=== PATIENT | female | born 1990 | race Caucasian/White ===

== ENCOUNTER 2016-09-18 02:00 | Emergency (ER) | payer MEDICAID ==
[~2016-09-18] VITALS: Ht 152.4 cm; Wt 90.7 kg
[2016-09-18] MEDS ORDERED: GABAPENTIN 400400 MG PO (02:24)
[2016-09-18] MEDS ORDERED: MOBIC7.5 MG PO (02:25)
[2016-09-18] MEDS ORDERED: KLONOPIN1 MG PO (02:26)
[2016-09-18 02:39] LABS: HEMOGLOBIN 12.9 g/dL (12.2-16.2); LYMPH # 3.6 K/mm3 (0.7-4.5); LYMPH % 26.6 % (10-50.0)
[2016-09-18 03:08] LABS: BUN 5 mg/dL (7-18)
[2016-09-18 03:13] LABS: GFR (ESTIMATED) 121 ML/MIN (59-)
--- NOTE | 2016-09-18 03:16 | Emergency Room Report ---
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 N Clinical Suspician of Infection? N Mental Status: 1 - Regular (Normal Baseline) Sepsis Risk:Possible Sepsis Risk Have you (or family members/close friends) recently traveled outside the [place]? N If Yes, where/when: Have you had exposure to infectious disease within the past month? N TB? Other? Specify: Source patient, RN notes reviewed, family, RN/MD Exam Limitations no limitations Comment This is a 25-year-old female patient arriving to the emergency room together with her and young child, complaining with palpitations and anxiety. Patient just had the heart attack, prior to arrival, while at home. She clearly describes anxiety, fear, hyperventilation, palpitations, and finally chest pain. Patient has had previous similar episodes in the past, multiple occasions. She is currently on Klonopin for this condition, prescribed by her PCP. ALLERGIES Coded Allergies: Penicillins (09/18/16) amoxicillin (09/18/16) guaifenesin (From MUCINEX) (09/18/16) Home Medications Reported Medications GABAPENTIN (Gabapentin) 300 MG PO TID Meloxicam (Mobic 7.5MG) 7.5 MG PO DAILY Clonazepam (Klonopin 1MG) 1 MG PO TID History Medical History General CAD? No Angina: No [place]: No Hypertension? No Hyperlipidemia? No CHF? No DVT? No PE? No COPD? No Asthma? No Anemia? No GERD? No Gastric ulcers? No GI Bleed? No Hernia? No Thyroid Problems? No Hypothyroidism? No CVA? No Seizures? No Diabetes? No Renal Insuffiency? No End Stage Renal Disease? No UTI? No Stones? No BPH? No GB Disease: No Nephritic Syndrome? No Asplenia? No Hepatitis? No Sickle Cell Disease? No Arthritis? No Migraines? Yes Cataracts? No Glaucoma? No MRSA? No HIV? No TB? No Anxiety? Yes Depression? Yes Cancer? No More? 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 Social History Smoking Hx Smoker: Current Every Day Smoker Tobacco: Yes Type Cigarettes Packs/day < 1 Pack Alcohol Alcohol: No Review of Systems All Other Systems Reviewed and Negative Cardiovascular palpitations Psychiatric/Neurological anxiety Physical Exam Vital Signs Vital Signs Date Time Temp Pulse Resp B/P Pulse O2 O2 Flow FiO2 Ox Delivery Rate 09/18 0324 97.9 62 16 119/77 98 2 09/18 0315 89 20 119/77 97 2 09/18 0241 112 16 142/93 97 09/18 0235 18 09/18 0211 98.1 92 20 145/107 100 General Appearance normal appearance, WD/WN, mild distress, anxious Neck normal inspection, non-tender, supple, full range of motion Respiratory Status Yes: trachea midline, chest symmetrical, non tender chest. No: respiratory distress. Lung Sounds bilateral: normal breath sounds, lungs clear. 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 No Comment Upon evaluation patient appears medically stable, clinically improving. Advised patient to follow-up with her PCP, at her earliest convenience, if any residual or relapsing symptoms. DDX: Acute myocardial infarction, palpitations, anxiety, pulmonary embolism, hyperthyroidism, pneumothorax, pneumonia, etc. Results/Orders Laboratory Tests 09/18/16 0235: B-Natriuretic Peptide 16 09/18/16234: Sodium 138, Potassium 3.4 L, Chloride 100, Carbon Dioxide 28, BUN 5 L, Creatinine 0.6, Estimated Creat Clear 203 H, Estimated GFR (MDRD) 121, Glucose 73 L, Calcium 8.8, Total Bilirubin 0.3, AST 12 L, ALT 32, Alkaline Phosphatase 78, Creatine Kinase 114, CK-MB (CK-2) Rel Index 0.4, CK and CKMB Interp 0.5, Troponin I < 0.02, Total Protein 7.8, Albumin 3.4, Globulin 4.4 H, Albumin/ Globulin Ratio 0.8 L, D-Dimer 115, WBC 13.6 H, RBC 4.85, Hgb 12.9, Hct 38.9, MCV 80.2 L, RDW 14.4, Plt Count 385, MPV 5.5 L, Gran % 67.4, Gran # 9.1 H, Lymphocytes % 26.6, Monocytes % 4.4, Eosinophils % 1.3, Basophils % 0.4, Lymphocytes # 3.6, Monocytes # 0.6, Eosinophils # 0.2, Basophils # 0.1, PUBS MCHC 33.1, MCH 26.6 L Current Medication Orders Sig/Thomas Start time Last Medication Dose Route Stop Time Status Admin Lorazepam 0 .STK-MED ONE 09/18 232 DC .ROUTE Lorazepam 1 MG ONCE ONE 09/18 214 DC 09/18 IV 09/18 215 023 Orders Procedure Date/time Status ELECTROCARDIOGRAM REQUEST 09/18 206 Active D-DIMER 09/18 206 Complete CBC WITH AUTO DIFF 09/18 206 Complete CARDIAC ENZYMES 09/18 206 Complete CHEM 12 PROFILE 09/18 206 Complete BRAIN NATRIURETIC PEPTIDE 09/18 206 Complete 12 LEAD EKG-WILLIAM (INITIAL) 09/18 UNK Active 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 of ischemic chgs, no ectopy, normal QRS, no EKG for comparison, non-spec. ST/Twave chgs, ST elevation, ST depression, LBBB, RBBB, ectopy, abnormal Q waves XRAY/CT/US XRAY/CT/US XRAY chest XR interpretation by reviewed by me Xray Results no infiltrates, normal heart size, normal lung inflation socorro Departure Departure Time of Disposition 314 Disposition DC Home or Self Care(routine) Clinical Impression Primary Impression: Palpitations Secondary Impressions: Chest pain Qualifiers: Chest pain type: unspecified Qualified Code: R07.9 - Chest pain, unspecified Condition STABLE Referrals [facility]: Today after leaving ER Patient Instructions DI for Anxiety -- Adult, DI for Palpitations Additional Instructions Please follow up with [facility] within two (2) days. Discharge Counseling Counseled pt/family regarding diagnosis, test results, medications/RX, home care, follow up needs Comment Please follow up with [facility] doctor within two (2) days. Prescriptions Current Visit Scripts Hydroxyzine Hcl (Hydroxyzine) 50 MG PO Q8HP PRN anxiety #12 CAP ED Critical Care Critical Care No at 0604
--- NOTE | 2016-09-18 03:16 | Emergency Room Report ---
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 N Clinical Suspician of Infection? N Mental Status: 1 - Regular (Normal Baseline) Sepsis Risk:Possible Sepsis Risk Have you (or family members/close friends) recently traveled outside the [place]? N If Yes, where/when: Have you had exposure to infectious disease within the past month? N TB? Other? Specify: Source patient, RN notes reviewed, family, RN/MD Exam Limitations no limitations Comment This is a 25-year-old female patient arriving to the emergency room together with her and young child, complaining with palpitations and anxiety. Patient just had the heart attack, prior to arrival, while at home. She clearly describes anxiety, fear, hyperventilation, palpitations, and finally chest pain. Patient has had previous similar episodes in the past, multiple occasions. She is currently on Klonopin for this condition, prescribed by her PCP. ALLERGIES Coded Allergies: Penicillins (09/18/16) amoxicillin (09/18/16) guaifenesin (From MUCINEX) (09/18/16) Home Medications Reported Medications GABAPENTIN (Gabapentin) 300 MG PO TID Meloxicam (Mobic 7.5MG) 7.5 MG PO DAILY Clonazepam (Klonopin 1MG) 1 MG PO TID History Medical History General CAD? No Angina: No [place]: No Hypertension? No Hyperlipidemia? No CHF? No DVT? No PE? No COPD? No Asthma? No Anemia? No GERD? No Gastric ulcers? No GI Bleed? No Hernia? No Thyroid Problems? No Hypothyroidism? No CVA? No Seizures? No Diabetes? No Renal Insuffiency? No End Stage Renal Disease? No UTI? No Stones? No BPH? No GB Disease: No Nephritic Syndrome? No Asplenia? No Hepatitis? No Sickle Cell Disease? No Arthritis? No Migraines? Yes Cataracts? No Glaucoma? No MRSA? No HIV? No TB? No Anxiety? Yes Depression? Yes Cancer? No More? 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 Social History Smoking Hx Smoker: Current Every Day Smoker Tobacco: Yes Type Cigarettes Packs/day < 1 Pack Alcohol Alcohol: No Review of Systems All Other Systems Reviewed and Negative Cardiovascular palpitations Psychiatric/Neurological anxiety Physical Exam Vital Signs Vital Signs Date Time Temp Pulse Resp B/P Pulse O2 O2 Flow FiO2 Ox Delivery Rate 09/18 0324 97.9 62 16 119/77 98 2 09/18 0315 89 20 119/77 97 2 09/18 0241 112 16 142/93 97 09/18 0235 18 09/18 0211 98.1 92 20 145/107 100 General Appearance normal appearance, WD/WN, mild distress, anxious Neck normal inspection, non-tender, supple, full range of motion Respiratory Status Yes: trachea midline, chest symmetrical, non tender chest. No: respiratory distress. Lung Sounds bilateral: normal breath sounds, lungs clear. 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 No Comment Upon evaluation patient appears medically stable, clinically improving. Advised patient to follow-up with her PCP, at her earliest convenience, if any residual or relapsing symptoms. DDX: Acute myocardial infarction, palpitations, anxiety, pulmonary embolism, hyperthyroidism, pneumothorax, pneumonia, etc. Results/Orders Laboratory Tests 09/18/16 0235: B-Natriuretic Peptide 16 09/18/16234: Sodium 138, Potassium 3.4 L, Chloride 100, Carbon Dioxide 28, BUN 5 L, Creatinine 0.6, Estimated Creat Clear 203 H, Estimated GFR (MDRD) 121, Glucose 73 L, Calcium 8.8, Total Bilirubin 0.3, AST 12 L, ALT 32, Alkaline Phosphatase 78, Creatine Kinase 114, CK-MB (CK-2) Rel Index 0.4, CK and CKMB Interp 0.5, Troponin I < 0.02, Total Protein 7.8, Albumin 3.4, Globulin 4.4 H, Albumin/ Globulin Ratio 0.8 L, D-Dimer 115, WBC 13.6 H, RBC 4.85, Hgb 12.9, Hct 38.9, MCV 80.2 L, RDW 14.4, Plt Count 385, MPV 5.5 L, Gran % 67.4, Gran # 9.1 H, Lymphocytes % 26.6, Monocytes % 4.4, Eosinophils % 1.3, Basophils % 0.4, Lymphocytes # 3.6, Monocytes # 0.6, Eosinophils # 0.2, Basophils # 0.1, PUBS MCHC 33.1, MCH 26.6 L Current Medication Orders Sig/Thomas Start time Last Medication Dose Route Stop Time Status Admin Lorazepam 0 .STK-MED ONE 09/18 232 DC .ROUTE Lorazepam 1 MG ONCE ONE 09/18 214 DC 09/18 IV 09/18 215 023 Orders Procedure Date/time Status ELECTROCARDIOGRAM REQUEST 09/18 206 Active D-DIMER 09/18 206 Complete CBC WITH AUTO DIFF 09/18 206 Complete CARDIAC ENZYMES 09/18 206 Complete CHEM 12 PROFILE 09/18 206 Complete BRAIN NATRIURETIC PEPTIDE 09/18 206 Complete 12 LEAD EKG-WILLIAM (INITIAL) 09/18 UNK Active 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 of ischemic chgs, no ectopy, normal QRS, no EKG for comparison, non-spec. ST/Twave chgs, ST elevation, ST depression, LBBB, RBBB, ectopy, abnormal Q waves XRAY/CT/US XRAY/CT/US XRAY chest XR interpretation by reviewed by me Xray Results no infiltrates, normal heart size, normal lung inflation socorro Departure Departure Time of Disposition 314 Disposition DC Home or Self Care(routine) Clinical Impression Primary Impression: Palpitations Secondary Impressions: Chest pain Qualifiers: Chest pain type: unspecified Qualified Code: R07.9 - Chest pain, unspecified Condition STABLE Referrals [facility]: Today after leaving ER Patient Instructions DI for Anxiety -- Adult, DI for Palpitations Additional Instructions Please follow up with [facility] [place] [facility] family doctor within two (2) days. Discharge Counseling Counseled pt/family regarding diagnosis, test results, medications/RX, home care, follow up needs Comment Please follow up with [facility] [place] [facility] doctor within two (2) days. Prescriptions Current Visit Scripts Hydroxyzine Hcl (Hydroxyzine) 50 MG PO Q8HP PRN anxiety #12 CAP ED Critical Care Critical Care No at 0692
[2016-09-18] MEDS ORDERED: HYDROXYZINE50 MG PO (03:17)
[2016-09-18 03:24] VITALS: BP 119/77
[2016-10-29] MEDS ORDERED: PREDNISONE 20MG20 MG PO (01:30)
[2016-10-29] MEDS ORDERED: TESSALON PERLE100 MG PO (01:30)
[2016-10-29] MEDS ORDERED: LEVAQUIN500 MG PO (01:30)
== END 2016-09-18 03:33 | disposition home or self-care (01) ==
LOC: ER 02:00
PROVIDERS: Emergency Medicine
DX: R07.9 Chest pain, unspecified (principal); R00.2 Palpitations; F41.8 Other specified anxiety disorders; Z72.0 Tobacco use